=== PATIENT | female | born 1995 | race Caucasian/White ===

== ENCOUNTER 2017-04-04 21:45 | Emergency (ER) | payer OTHER ==
--- NOTE | 2017-04-04 22:08 | ER Document Report ---
ED GI/ - General Chief Complaint: Abdominal Pain Stated Complaint: ABDOMINAL PAIN Time Seen by Provider: 04/04/17 22:08 Mode of Arrival: Ambulatory Information source: Patient TRAVEL OUTSIDE OF THE [place] IN LAST 30 DAYS: No - HPI Notes: 04/04/17 22:41 21-year-old healthy lady with past medical history of right ovarian cyst that was diagnosed 9 months ago who presented today for evaluation of right acute lower abdominal pain after intercourse. According to patient right after she finished intercourse she developed acute, sharp pain localized to the right lower abdomen, associated with nausea as well as a few episodes of vomiting, severity of symptoms at that time was 10 out of 10. When patient presented to emergency department her pain had let up. Now her pain is approximately 4 out of 10. No more nausea or vomiting. Patient is more comfortable now. - Related Data Allergies/Adverse Reactions: No Known Allergies Allergy (Unverified 06/14/15 00:41) Past Medical History - Social History Smoking Status: Current Every Day Smoker Chew tobacco use (# tins/day): No Frequency of alcohol use: None Drug Abuse: None Family History: None Patient has suicidal ideation: No Patient has homicidal ideation: No Renal/ Medical History: Denies: Hx Peritoneal Dialysis Review of Systems - Review of Systems Notes: REVIEW OF SYSTEMS: CONSTITUTIONAL: -fevers, -chills EENT: -eye pain, -difficulty swallowing, -nasal congestion CARDIOVASCULAR: -chest pain, -syncope. RESPIRATORY: -cough, -SOB GASTROINTESTINAL: + Abdominal pain, + nausea, + vomiting, -diarrhea GENITOURINARY: -dysuria, -hematuria MUSCULOSKELETAL: -back pain, -neck pain SKIN: -rash or skin lesions. HEMATOLOGIC: -easy bruising or bleeding. LYMPHATIC: -swollen, enlarged glands. NEUROLOGICAL: -altered mental status or loss of consciousness, -headache, - neurologic symptoms PSYCHIATRIC: -anxiety, -depression. ALL OTHER SYSTEMS REVIEWED AND NEGATIVE. Physical Exam - Vital signs Vitals: Temp Pulse Resp BP Pulse Ox 98.4 F 61 20 118/80 100 04/04/17 21:57 04/04/17 21:57 04/04/17 21:57 04/04/17 21:57 04/04/17 21:57 - Notes Notes: Reviewed vital signs and nursing note as charted by RN. CONSTITUTIONAL: Alert and oriented and responds appropriately to questions HEAD: Normocephalic; atraumatic EYES: PERRL; Conjunctivae clear, sclerae non-icteric ENT: normal nose NECK: Supplemus; non-tender; no cervical lymphadenopathy, no masses CARD: Regular rate and rhythm; no murmurs, no clicks, no rubs, no gallops; symmetric distal pulses RESP: Normal chest excursion without splinting or tachypnea; breath sounds clear and equal bilaterally ABD/GI: Normal bowel sounds; non-distended; soft, patient has stretch martin from prior , patient has tenderness to palpation along right lower quadrant, no rebound or guarding, patient has mild tenderness to palpation along left lower quadrant as well BACK: The back appears normal and is non-tender to palpation EXT: Normal ROM in all joints; non-tender to palpation; no cyanosis, no effusions, no edema SKIN: Normal color for age and race; warm; dry; good turgor; capillary refill < 2 seconds; no acute lesions noted NEURO: .Cranial nerves 3-12 intact. Motor strength 5/5 bilaterally. Sensation intact to touch bilaterally. No pronator drift. Finger to nose intact bilaterally PSYCH: The patient's mood and manner are appropriate. Grooming and personal hygiene are appropriate. Course - Re-evaluation Re-evalutation: 04/04/17 22:44 21-year-old with acute lower abdominal pain after intercourse Patient does have history of right ovarian cyst on the similar side where she has pain now Differential diagnoses includes hemorrhagic cyst, ovarian torsion, traumatic abdominal pain, acute cystitis, kidney stone, hematuria, We will obtain basic lab work including CBC, BMP, urinalysis, urine test Endovaginal ultrasound with Dopplers to rule out acute torsion of her ovary We will give patient Dilaudid for pain control as well as Zofran for nausea Reassess patient 04/04/17 23:59 Reassessment 12 a.m. Ultrasound is negative for acute torsion, patient has 5 cm cyst localized to the right ovary Her pain is well controlled at present time but she still has mild right lower quadrant pain Given the patient has mild leukocytosis, will obtain CT scan to rule out acute appendicitis 04/05/17 02:58 CT scan with no acute evidence of appendicitis Patient feels better, pain well controlled Discharge home with strict return precautions as well as follow-up with [facility] for evaluation of her ovarian cyst Discussed results of imaging and lab work with patient, agree with disposition today - Vital Signs Vital signs: Temp Pulse Resp BP Pulse Ox 97.4 F 56 L 15 114/72 100 04/05/17 00:56 04/05/17 00:56 04/05/17 00:56 04/05/17 00:56 04/05/17 00:56 - Laboratory Result Diagrams: 04/04/17 22:50 04/04/17 22:50 Laboratory results interpreted by me: 04/04/17 22:50 WBC 14.0 H Absolute Neutrophils 8.9 H - Diagnostic Test Radiology reviewed: Image reviewed - Diagnostic report text EXAM DESCRIPTION: U /S NON OB PEL TV W/DOPPLER COMPLETED DATE/TIME: 04/04/2017 11:29 pm REASON FOR STUDY: R ovarian torsion COMPARISON: None. TECHNIQUE: Dynamic and static grayscale images acquired of the pelvis via transvaginal approach and recorded on PACS. Additional selected color Doppler and spectral images recorded. LIMITATIONS: None. FINDINGS: UTERUS: Contour normal. No mass. ENDOMETRIAL STRIPE: No focal or generalized thickening. No masses. CERVIX: No nabothian cysts. RIGHT OVARY: 5.0 cm cyst. RIGHT OVARY DOPPLER: Normal arterial vascular flow without evidence for torsion. LEFT OVARY: 2.7 cm cysts. LEFT OVARY DOPPLER: Normal arterial vascular flow without evidence for torsion. FREE FLUID: Trace cul-de-sac free fluid. OTHER: No other significant finding. MEASUREMENTS: UTERUS: 8.4 x 5.6 x 5.0 cm ENDOMETRIAL STRIPE: 12 mm RIGHT OVARY: 5.9 x 5.7 x 3.8 cm LEFT OVARY: 3.7 x 2.3 x 2.1 cm IMPRESSION: 5 cm right ovarian cyst. No evidence for torsion. TECHNICAL DOCUMENTATION: JOB ID: [id number] [place]-72 2010 [employer]- All Rights Reserved Dictated by: DEVIN METZ MD [id number] CC: TERRANCE PIERRE MD > <Electronically signed by DEVIN METZ MD in OV> 04/04/17 1155 Embedded Images (not for diagnostic purposes) Signs and Symptoms: ITS.REASON^R ovarian torsion History: ITS.REASON^R ovarian torsion Comments: Visit Pt Loc: ER Phone: Performing Provider Comments: Attending: TERRANCE PIERRE V Phone: Beeper: Email: Requester: TERRANCE PIERRE V EXAM DESCRIPTION: CT ABDOMEN AND PELVIS WITH CONTRAST CLINICAL HISTORY : RLQ pain COMPARISON: None Available. TECHNIQUE: CT of the abdomen and pelvis are performed during IV bolus administration of 65 mL of Isovue-370. Oral contrast administered. Delayed phase images obtained. DLP: 529.86 mGycm FINDINGS: Abdomen: The liver has normal size and density. No intrahepatic mass or biliary dilatation. No calcified gallstones. The spleen, pancreas, and adrenal glands are unremarkable. The kidneys have normal size and contour without evidence of solid mass or hydronephrosis. The aorta and IVC have normal caliber and position. The portal vein patent. The proximal visceral and renal arteries are patent. No free intraperitoneal air. The stomach and duodenum have normal course. Pelvis: Uterus is not enlarged. 5.6 cm right ovarian cyst corresponding to cysts seen on pelvic ultrasound same day. Based on ultrasound findings this is almost certainly benign and annual ultrasound follow-up recommended. Urinary bladder is unremarkable. Trace free pelvic fluid. No dilated loops of large or small bowel. The appendix is not definitely identified however, the structure felt to represent the appendix demonstrates no definite abnormality. No definite right lower quadrant inflammatory change to suggest acute appendicitis. The visualized lung bases are clear. No destructive bone lesions identified. IMPRESSION: 1. No acute inflammatory or obstructive abnormality identified. This exam was performed according to our departmental dose-optimization program, which includes automated exposure control, adjustment of the mA and/or kV according to patient size and/or use of iterative reconstruction technique. Dictated by: RICHELLE JIANG DO [id number] CC: TERRANCE PIERRE MD Discharge - Discharge Clinical Impression: Ovarian cyst, Abdominal pain Condition: Stable Disposition: HOME, SELF-CARE Instructions: Abdominal Pain ([facility]), Ovarian Cyst ([facility]) Additional Instructions: Please avoid heavy exercise as well as vigorous sexual activity because your ovary can torse Please take Tylenol Motrin for pain Follow-up with [facility] doctors for reassessment of your ovarian cyst and follow- up ultrasound Please come back if you worsening pain, vaginal bleeding, nausea vomiting Referrals: FREDO WADE MD [ACTIVE STAFF] - Follow up in 1 week
[2017-04-04] MEDS ORDERED: HYDROMORPHONE HCL INJ/PF 2 MG/ML AMPULE IV ONE (22:37)
[2017-04-04] MEDS ORDERED: NORMAL SALINE 1000 ML 1,000 ML IV ONE (22:37)
[2017-04-04] MEDS ORDERED: ONDANSETRON HCL INJ/PF 4 MG/2 ML SDV IV ONE (22:38)
[2017-04-04 23:09] LABS: ABSOLUTE EOSINOPHILS # (AUTO) 0.2 10^3/uL (0.0-0.6); ABSOLUTE LYMPHOCYTES (AUTO) 3.9 10^3/uL (0.5-4.7); ABSOLUTE NEUT (AUTO) 8.9 10^3/uL (1.7-8.2); BASOPHILS % (AUTO) 0.2 % (0-2); EOSINOPHILS % (AUTO) 1.2 % (0-6); HEMATOCRIT 42.4 % (36.0-47.0); HEMOGLOBIN 14.4 g/dL (12.0-15.5); LYMPHOCYTES % (AUTO) 27.9 % (13-45); MEAN CORPUSCULAR HEMOGLOBIN 30.5 pg (27.0-33.4); MEAN CORPUSCULAR HGB CONC 33.9 g/dL (32.0-36.0); MEAN CORPUSCULAR VOLUME 90 fl (80-97); MONOCYTES % (AUTO) 7.1 % (3-13); PLATELET COUNT 323 10^3/uL (150-450); RED BLOOD COUNT 4.71 10^6/uL (3.72-5.28); RED CELL DISTRIBUTION WIDTH 12.8 % (11.5-14.0); SEGMENTED NEUTROPHILS % (AUTO) 63.6 % (42-78); TOTAL CELLS COUNTED % (AUTO) 100 %
[2017-04-04 23:16] LABS: INTERNATIONAL RATION (INR) 1.02; PROTHROMBIN TIME 14.1 SEC (11.4-15.4)
[2017-04-04 23:30] LABS: ANION GAP 12 (5-19); BLOOD UREA NITROGEN 8 mg/dL (7-20); CARBON DIOXIDE 27 mmol/L (22-30); CHLORIDE 106 mmol/L (98-107); GLUCOSE 85 mg/dL (75-110); POTASSIUM 3.8 mmol/L (3.6-5.0); SODIUM 144.7 mmol/L (137-145)
--- NOTE | 2017-04-04 23:58 | RADIOLOGY REPORT (SQ) ---
EXAM DESCRIPTION: U/S NON OB PEL TV W/DOPPLER COMPLETED DATE/TIME: 04/04/2017 11:29 pm REASON FOR STUDY: R ovarian torsion COMPARISON: None. TECHNIQUE: Dynamic and static grayscale images acquired of the pelvis via transvaginal approach and recorded on PACS. Additional selected color Doppler and spectral images recorded. LIMITATIONS: None. FINDINGS: UTERUS: Contour normal. No mass. ENDOMETRIAL STRIPE: No focal or generalized thickening. No masses. CERVIX: No nabothian cysts. RIGHT OVARY: 5.0 cm cyst. RIGHT OVARY DOPPLER: Normal arterial vascular flow without evidence for torsion. LEFT OVARY: 2.7 cm cysts. LEFT OVARY DOPPLER: Normal arterial vascular flow without evidence for torsion. FREE FLUID: Trace cul-de-sac free fluid. OTHER: No other significant finding. MEASUREMENTS: UTERUS: 8.4 x 5.6 x 5.0 cm ENDOMETRIAL STRIPE: 12 mm RIGHT OVARY: 5.9 x 5.7 x 3.8 cm LEFT OVARY: 3.7 x 2.3 x 2.1 cm IMPRESSION: 5 cm right ovarian cyst. No evidence for torsion. TECHNICAL DOCUMENTATION: JOB ID: [id number] [place]-72 2010 [employer]- All Rights Reserved
[2017-04-05] MEDS ORDERED: HYDROMORPHONE HCL INJ/PF 2 MG/ML AMPULE IV ONE (00:03)
[2017-04-05 00:09] LABS: APPEARANCE,URINE CLEAR; BILIRUBIN,URINE NEGATIVE (NEGATIVE); COLOR,URINE STRAW; GLUCOSE, URINE NEGATIVE (NEGATIVE); KETONES,URINE NEGATIVE (NEGATIVE); LEUKOCYTE ESTERASE,URINE NEGATIVE (NEGATIVE); NITRITE,URINE NEGATIVE (NEGATIVE); PROTEIN,URINE NEGATIVE (NEGATIVE); UROBILINOGEN,URINE NEGATIVE mg/dL (<2.0)
--- NOTE | 2017-04-05 02:25 | RADIOLOGY REPORT (SQ) ---
EXAM DESCRIPTION: CT ABDOMEN AND PELVIS WITH CONTRAST CLINICAL HISTORY: RLQ pain COMPARISON: None Available. TECHNIQUE: CT of the abdomen and pelvis are performed during IV bolus administration of 65 mL of Isovue-370. Oral contrast administered. Delayed phase images obtained. DLP: 529.86 mGycm FINDINGS: Abdomen: The liver has normal size and density. No intrahepatic mass or biliary dilatation. No calcified gallstones. The spleen, pancreas, and adrenal glands are unremarkable. The kidneys have normal size and contour without evidence of solid mass or hydronephrosis. The aorta and IVC have normal caliber and position. The portal vein patent. The proximal visceral and renal arteries are patent. No free intraperitoneal air. The stomach and duodenum have normal course. Pelvis: Uterus is not enlarged. 5.6 cm right ovarian cyst corresponding to cysts seen on pelvic ultrasound same day. Based on ultrasound findings this is almost certainly benign and annual ultrasound follow-up recommended. Urinary bladder is unremarkable. Trace free pelvic fluid. No dilated loops of large or small bowel. The appendix is not definitely identified however, the structure felt to represent the appendix demonstrates no definite abnormality. No definite right lower quadrant inflammatory change to suggest acute appendicitis. The visualized lung bases are clear. No destructive bone lesions identified. IMPRESSION: 1. No acute inflammatory or obstructive abnormality identified. This exam was performed according to our departmental dose-optimization program, which includes automated exposure control, adjustment of the mA and/or kV according to patient size and/or use of iterative reconstruction technique.
[2017-04-05 03:11] VITALS: BP 106/59
== END 2017-04-05 03:13 | disposition home or self-care (01) ==
LOC: ER 21:45
DX: N83.201 Unspecified ovarian cyst, right side (principal); R10.30 Lower abdominal pain, unspecified; R11.2 Nausea with vomiting, unspecified; F17.200 Nicotine dependence, unspecified, uncomplicated
CPT/HCPCS: 99284; 36415; 85025; 85610; 81025; 80048; 81001; 76830; 93976; 74177; J1170 ×2; J2405; J7030

== ENCOUNTER 2018-04-10 09:38 | Emergency (ER) | payer OTHER ==
[2018-04-10] MEDS ORDERED: IPRATROPIUM/ALBUTEROL 0.5-2.5 MG/3 ML AMPUL NEB ONE (09:51)
--- NOTE | 2018-04-10 09:53 | ER Document Report ---
ED Medical Screen (RME) - General Chief Complaint: Nausea/Vomiting/Diarrhea Stated Complaint: COUGH Time Seen by Provider: 04/10/18 09:47 Notes: Chief complaint: Fever History of complain:( obtained from----patient) 22 years old female presents today with fever chills nausea vomiting diarrhea for the last 2 days. With generalized body aches and pain. No vomiting. Denies any dysuria frequency urgency. Significant For influenza vaccine PHYSICAL EXAMINATION: GENERAL: Appears sick HEAD: Atraumatic, normocephalic. EYES: Pupils equal round and reactive to light, extraocular movements intact, conjunctiva are normal. ENT: Nares patent, oropharynx diffusely erythematous. Moist mucous membranes. Ear bilaterally clear noted normal tympanic membrane NECK: Normal range of motion, supple without lymphadenopathy LUNGS: Breath sounds clear to auscultation bilaterally and equal. No wheezes rales or rhonchi. HEART: Regular rate and rhythm without murmurs ABDOMEN: Soft, nontender, nondistended abdomen. No guarding, no rebound. No masses appreciated. E Dictation was performed using [employer] voice recognition software completed TRAVEL OUTSIDE OF THE [place] IN LAST 30 DAYS: No - Related Data Allergies/Adverse Reactions: No Known Allergies Allergy (Verified 04/10/18 09:40) Past Medical History Renal/ Medical History: Denies: Hx Peritoneal Dialysis Physical Exam - Vital signs Vitals: Temp Pulse Resp BP Pulse Ox 97.9 F 75 14 112/79 98 04/10/18 09:41 04/10/18 09:41 04/10/18 09:41 04/10/18 09:41 04/10/18 09:41 Course - Vital Signs Vital signs: Temp Pulse Resp BP Pulse Ox 97.9 F 75 14 112/79 98 04/10/18 09:41 04/10/18 09:41 04/10/18 09:41 04/10/18 09:41 04/10/18 09:41
[2018-04-10 10:34] LABS: A TYPE INFLUENZA AG NEGATIVE (NEGATIVE); B INFLUENZA AG NEGATIVE (NEGATIVE)
[2018-04-10] MEDS ORDERED: ONDANSETRON 4 MG TAB.RAPDIS PO ONE (11:16)
[2018-04-10] MEDS ORDERED: LOPERAMIDE HCL 2 MG CAPSULE PO ONE (11:16)
--- NOTE | 2018-04-10 11:22 | ER Document Report ---
ED General - General Chief Complaint: Nausea/Vomiting/Diarrhea Stated Complaint: COUGH Time Seen by Provider: 04/10/18 09:47 Mode of Arrival: Ambulatory Information source: Patient, [facility] Records Notes: Patient is a 22 year old female presenting to the ED for complaints of rhinorrhea, congestion, and productive cough x3 days. She also reports a 1 day history of nausea, vomiting, and diarrhea. Patient reports 6 episodes of vomiting and 4 episodes of diarrhea yesterday, but states that she was able to eat crackers and drink water this morning. She denies current nausea. Patient states that her roommates have been sick with the same symptoms as her. She has taken Dayquil with no relief. She denies fever, dysuria, headache, and dizziness. TRAVEL OUTSIDE OF THE [place] IN LAST 30 DAYS: No - HPI Onset: Other - x3 days Onset/Duration: Persistent Associated symptoms: Chest pain - Second to cough, Chills, Productive cough, Diarrhea, Earache - Right ear, Nausea, Vomiting, Rhinnorhea, Shortness of breath, Sore throat. denies: Fever, Headache Relieved by: Denies Recently seen / treated by doctor: No - Related Data Allergies/Adverse Reactions: No Known Allergies Allergy (Verified 04/10/18 09:40) Past Medical History - General Information source: Patient - Social History Smoking Status: Current Every Day Smoker Cigarette use (# per day): Yes - 0.5 ppd Chew tobacco use (# tins/day): No Frequency of alcohol use: Occasional Drug Abuse: None Family History: None Patient has suicidal ideation: No Patient has homicidal ideation: No Renal/ Medical History: Denies: Hx Peritoneal Dialysis Psychiatric Medical History: Reports: Hx Attention Deficit Hyperactivity Disorder Past Surgical History: Reports: Hx Appendectomy Review of Systems - Review of Systems Constitutional: Chills. denies: Fever EENT: Ear pain - Right ear, Nose congestion, Nose discharge, Throat pain Cardiovascular: Chest pain - Second to cough. denies: Dizziness Respiratory: Cough, Short of breath Gastrointestinal: Abdominal pain, Diarrhea, Nausea, Vomiting Genitourinary: denies: Dysuria -: Yes All other systems reviewed and negative Physical Exam - Vital signs Vitals: Temp Pulse Resp BP Pulse Ox 97.9 F 75 14 112/79 98 04/10/18 09:41 04/10/18 09:41 04/10/18 09:41 04/10/18 09:41 04/10/18 09:41 - Notes Notes: PHYSICAL EXAMINATION: GENERAL: Well-appearing, well-nourished and in no acute distress. HEAD: Atraumatic, normocephalic. EYES: Pupils equal round and reactive to light, extraocular movements intact, conjunctiva are normal. ENT: Nares patent, oropharynx clear without exudates. Moist mucous membranes. NECK: Normal range of motion, supple without lymphadenopathy LUNGS: Breath sounds clear to auscultation bilaterally and equal. Mild expiratory wheezing HEART: Regular rate and rhythm without murmurs ABDOMEN: Soft, nontender, nondistended abdomen. No guarding, no rebound. No masses appreciated. Female : deferred Musculoskeletal: Normal range of motion, no pitting or edema. No cyanosis. NEUROLOGICAL: Cranial nerves grossly intact. Normal speech, normal gait. Normal sensory, motor exams PSYCH: Normal mood, normal affect. SKIN: Warm, Dry, normal turgor, no rashes or lesions noted. Course - Re-evaluation Re-evalutation: Laboratory 04/10/18 04/10/18 09:55 09:55 Influenza A (Rapid) NEGATIVE Influenza B (Rapid) NEGATIVE Group A Strep Rapid NEGATIVE Temp Pulse Resp BP Pulse Ox 97.9 F 75 18 104/59 L 100 04/10/18 11:58 04/10/18 11:58 04/10/18 11:58 04/10/18 11:58 04/10/18 11:58 04/10/18 16:27 Presentation of an overall well-appearing patient in no acute distress with complaints of nausea, vomiting, diarrhea. This is consistent with likely viral gastroenteritis, viral URI. Patient has no abdominal tenderness on exam and specifically no tenderness in the RLQ, LLQ, RUQ. Overall well hydrated on exam. Able to tolerate oral intake here in the emergency department. Low clinical suspicion for any acute life-threatening etiology based on exam and history including acute cholecystitis, SBO, appendicitis, nephrolithiasis, or pylonephritis. CMP without evidence of acute hepatitis or significant dehydration. Will plan for discharge at this time with return precautions and followup recommendations. 04/10/18 16:28 - Vital Signs Vital signs: Temp Pulse Resp BP Pulse Ox 97.9 F 75 18 104/59 L 100 04/10/18 11:58 04/10/18 11:58 04/10/18 11:58 04/10/18 11:58 04/10/18 11:58 Discharge - Discharge Clinical Impression: Nausea vomiting and diarrhea, Cough, Wheezing, Tobacco use Condition: Good Disposition: HOME, SELF-CARE Instructions: Vomiting ([facility]), Diarrhea, Nonspecific ([facility]) Additional Instructions: Your symptoms are likely due to a viral illness and should resolve in the next several days. You can take [id number]-[id number] loperamide also known as Imodium as needed for diarrhea per box instructions. Continue to stay hydrated with plenty of solution such as Gatorade or Pedialyte. You are being prescribed Zofran to take as needed for nausea and vomiting. Please return if you develop severe abdominal pain, pass out, become unable to tolerate any oral fluids for 12 more hours, or any other symptoms that are concerning to you. Your symptoms are most likely due to a viral infection it should resolve over the next 7-14 days. You should take lmjo-cxy-eysszuv guanfacine per bottle instructions to help thin the mucus. For nasal congestion: I would recommend that you get lpof-mgo-jufzsum oxymetazoline also known is afrin. Use only per bottle instructions and be sure to never use this for more than 3 days if you can develop severe rebound congestion. You may also use tylenol or ibuprofen as needed for aches and thorat discomfort. Please be sure to drink plenty of fluids and get rest. Return to the emergency department he began having difficulty breathing, chest pain, persistent vomiting, or any other symptoms that are concerning to you. Prescriptions: Ondansetron [Zofran Odt 4 mg Tablet] 1 - 2 tab PO Q4H PRN #15 tab.rapdis PRN Reason: For Nausea/Vomiting Forms: Smoking Cessation Education, Return to Work
[2018-04-10] MEDS ORDERED: ALBUTEROL SULFATE HFA (90 MCG/PUFF) 8 GM MDI (1 MDI/ER DISP) IH PRN (11:28)
[2018-04-10] MEDS ORDERED: ONDANSETRON ODT 4 MG TAB (6 TAB/ER DISP) PO PRN (11:29)
[2018-04-10 12:04] VITALS: BP 104/59
== END 2018-04-10 12:04 | disposition home or self-care (01) ==
LOC: ER 09:38
DX: R11.2 Nausea with vomiting, unspecified (principal); R19.7 Diarrhea, unspecified; R05 Cough; R06.2 Wheezing; F17.210 Nicotine dependence, cigarettes, uncomplicated; J34.89 Other specified disorders of nose and nasal sinuses; R09.81 Nasal congestion; R06.02 Shortness of breath; R10.9 Unspecified abdominal pain; H92.01 Otalgia, right ear; R09.89 Other specified symptoms and signs involving the circulatory and respiratory systems; R07.0 Pain in throat
CPT/HCPCS: 94640; 99284; 87070; 87880; 87804; S0119; J3490; J7620